=== PATIENT | female | born 2000 | race African-American/Black ===

== ENCOUNTER 2019-05-26 21:01 | Emergency (ER) | payer OTHER ==
[~2019-05-26] VITALS: Ht 167.6 cm; Wt 98.0 kg
[2019-05-26 21:12] VITALS: BP 154/110
[2019-05-26] MEDS ORDERED: AMOXICILLIN 50500 MG PO (21:36)
== END 2019-05-26 21:41 | disposition home or self-care (01) ==
LOC: M.ERS 21:01
DX: J02.9 Acute pharyngitis, unspecified (principal)